=== PATIENT | male | born 1970 ===

== ENCOUNTER 2023-07-25 10:09 | Outpatient (AMB) | payer OTHER, SELFPAY ==
--- NOTE | 2023-07-25 10:35 | A.SPINEOV_ITS ---
Intake Intake Visit Reasons: Lumbar spinal stenosis Intake Note: Mr. Brown is here today c/o back pain radiating to both legs. Print Shop Assistant Required: Yes Print Shop Assistant Name: Tablet Allergies No Known Allergies Allergy (Verified 07/25/23 10:38) Assessment & Plan Assessment & Plan (1) Back pain: Code(s): M54.9 - Dorsalgia, unspecified Plan Dear Bladimir, Thank you for referring Mr Brown to our office today. This is a very nice 53-year-old gentleman who presents to the office today for a multiyear history of low back pain. He tells me that he has pain basically from the moment he gets up in the morning until he goes to bed. Getting up in the morning can be very difficult. Getting out of the bed is difficult, but as the day goes on the pain only seems to get worse. He underwent physical therapy as well as acupuncture and cortisone injections through the years. These things never seemed to really do much for him. Takes ibuprofen throughout the day. 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 This also makes his back pain significantly worse. He will also get pain that radiates down his legs into his feet with some numbness on his toes as well. He comes today to see us with an MRI done at [facility] showing epidural lipomatosis at L3-4 and L4-5 and severe degenerative disc disease at L5-S1. PMH: The patient is otherwise healthy, he is however morbidly obese, history of obstructive sleep apnea, diverticulosis, inguinal hernia bilaterally, diverticulitis, high cholesterol, hypothyroidism, vitamin-D deficiency, cholecystectomy. Denies any heart attacks, strokes, diabetes, kidney problems, liver problems, bleeding disorders, blood clots or previous back surgeries. Social hx: He does not smoke, occasional alcohol and does not use any recr eational drugs Medications: Ibuprofen as needed Allergies: None Physical exam: Morbidly obese no acute distress, he has full strength of bilateral lower extremities with normal reflexes Imaging review: He has a lumbar MRI done at [facility] showing severe disc collapse at L5-S1. He also has epidural lipomatosis at L3-4 and L4-5. There is significant narrowing of the thecal sac at this level L4-5. Impression: 53-year-old male presents to the office today for evaluation of what is primarily chronic low back pain but also has intermittent radiculopathy in his legs going down to his calves and feet. From the standpoint of his back pain, I think the symptoms are likely coming from the L5-S1 degenerative disc disease. It is a significantly collapsed disc. The foramina remain patent however. So I think is radiculopathy symptoms could be coming from the epidural lipomatosis, however we know that treating this surgically often results in the fatty tissue just growing back over time if the patient does not commit to weight loss, so weight loss is generally a better approved option to start. However, I do not think that weight loss will have any effect on his back pain as the disc is quite collapsed at L5-S1. I explained all this to him with the help of an second floor operator. I think he would be a good candidate for an L5-S1 fusion. I will review his imaging with Dr. Emerson for final decision on surgery, and whether this is an anterior lumbar interbody fusion versus a trans Kambin approach. The patient and I did briefly discuss risks, benefits of both approaches as well as his recovery. He Understands he would need 3 we months off from work because of the nature of his job. I will call the patient once I have a final plan in place with Dr. Emerson. Thank you for allowing us to care for your patient. The total time spent with this visit with this patient was 45 minutes reviewing history, physical exam, lumbar imaging review, and implementation of treatment plan or further diagnostic testing Gary Emerson MD,PhD [facility] Coding Level of Care Code New Pt Level 4 (34337) Diagnoses Back pain M54.9
== END 2023-07-25 11:11 | disposition home or self-care (01) ==
PROVIDERS: PCP Internal Medicine; Referring Provider Physician Assistant; Visit Provider Physician Assistant
DX: M54.9 Dorsalgia, unspecified (principal)
CPT/HCPCS: 99204

== ENCOUNTER → 2023-07-25 10:09 | Outpatient (BNVA) | payer OTHER, SELFPAY | PROVIDERS: PCP Internal Medicine; Visit Provider Physician Assistant | DX: M54.9 Dorsalgia, unspecified (principal) | CPT/HCPCS: 99202 ==

== ENCOUNTER 2023-08-11 15:22 | Outpatient (AMB) | payer OTHER, SELFPAY ==
--- NOTE | 2023-08-11 15:23 | A.SPINEOV_ITS ---
Intake Visit Reasons: Discuss Surgery Intake Note: Mr. Velasco is here to Discuss surgery Memory Care Director Required: Yes Memory Care Director Name: Tablet Accompanied by: Spouse Allergies No Known Allergies Allergy (Verified 08/11/23 15:24) Assessment & Plan Assessment & Plan (1) Back pain: Code(s): M54.9 - Dorsalgia, unspecified Category: Medical Plan MR Brown came into the office today to go over his imaging again and to discuss surgery. Dr. Emerson and I reviewed his films and thought a trans Kambin oblique lateral lumbar interbody fusion at L5-S1 would be the approach of choice for him. I sat down with him and his and reviewed the imaging at length, discussed risks benefits of surgery etc.. We again discussed the fact that the degenerative disc in his back is likely much of the source of his back pain but may not explain at all given that he does have obesity. I quoted success rate for surgery at 60-70% for his back pain. We also discussed the fact that he has epidural lipomatosis at L4-5 and that could be giving him some of his nerve pain down his legs but that the focus would be weight loss to treat that as opposed to surgery which can be very unpredictable. 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 We would be happy to fill out any FMLA forms that he needs us to. He would like to proceed with surgery, so I booked him for October. He will come back the week before surgery to meet Dr. Emerson. Pt was given risk and benefits of surgery including but not limited to infection, hematoma , nerve injury,durotomy, weakness,bowel/bladder injury, persistent pain, transient nerve pain down the leg as well as the option to continue with conservative treatment and patient wishes to proceed with surgery. Pt is aware they should stop their motrin, aspirin 7 days prior to surgery. All questions were answered to the best of our ability. If there is anything about this patients medical history that we have overlooked or concerns you have about us proceeding with surgery we would appreciate any input you can offer. Total amount of time spent in this visit was 20 minutes in discussion of symptoms, lumbar MRI done at [facility] imaging results and subsequent plan of care Gary Emerson MD,PhD [facility] Coding Level of Care Code Est Pt Level 3 (43550) Diagnoses Back pain M54.9
== END 2023-08-11 15:54 | disposition home or self-care (01) ==
PROVIDERS: PCP Internal Medicine; Visit Provider Physician Assistant
DX: M54.9 Dorsalgia, unspecified (principal)
CPT/HCPCS: 99213

== ENCOUNTER → 2023-08-11 15:22 | Outpatient (BNVA) | payer OTHER, SELFPAY | PROVIDERS: PCP Internal Medicine; Visit Provider Physician Assistant | DX: M54.9 Dorsalgia, unspecified (principal) | CPT/HCPCS: 99212 ==

== ENCOUNTER 2023-10-18 | Outpatient (REF) | payer OTHER, SELFPAY ==
[2023-10-18 10:13] VITALS: BP 145/88; PULSE 78; RESP 18; O2SAT 95; BMI 37.8
--- NOTE | 2023-10-18 10:40 | ECG_ITS ---
Test Reason : pre op Blood Pressure : / mmHG Vent. Rate : 066 BPM Atrial Rate : 066 BPM P-R Int : 160 ms QRS Dur : 088 ms QT Int : 382 ms P-R-T Axes : 047 011 025 degrees QTc Int : 400 ms Normal sinus rhythm Normal ECG No previous ECGs available Referred By: Libby Starks Electronically Signed By:ZACH RAMIREZ
[2023-10-18 11:03] LABS: MANUAL DIFF FLAG NO
[2023-10-18 11:09] LABS: Basophils Percent Auto 0.8 % (0-2); Eosinophils Absolute Auto 0.1 X10*3/uL (0.0-0.4); Hematocrit 48.5 % (42.0-52.0); Hemoglobin 16.5 g/dl (14.0-18.0); Imm Gran Abs Auto 0.01 X10*3/uL (0.00-0.03); Imm Gran Pct Auto 0.2 % (0.0-0.4); Lymphocytes Absolute Auto 1.4 X10*3/uL (1.2-4.9); Lymphocytes Percent Auto 27.8 % (20-40); Mean Corpuscular Hemoglobin 32.5 pg (27.0-33.0); Mean Corpuscular Volume 95.7 fL (80.0-98.0); Mean Platelet Volume 8.6 fL (9.4-12.4); Monocytes Absolute Auto 0.4 X10*3/uL (0.1-1.2); Monocytes Percent Auto 7.2 % (2-11); Neutrophils Absolute Auto 3.1 x10*3/uL (2.0-8.3); Platelet Count 259 X10*3/uL (160-400); Red Blood Count 5.07 X10*6/uL (4.60-5.80)
[2023-10-18 11:34] LABS: Anion Gap 10 (12-20); Blood Urea Nitrogen 14 mg/dL (9-16); Calcium 10.1 mg/dL (8.4-10.2); Carbon Dioxide 27 mmol/L (22-29); Chloride 105 mmol/L (96-108); Creatinine Clr Calc Pharmacy 97.1; Estimated Glomerular Filt Rate > 60; Glucose Random 96 mg/dL (60-115); Potassium 4.3 mmol/L (3.3-5.1); Sodium 138 mmol/L (135-145)
--- NOTE | 2023-10-30 09:04 | HO.ANESPROP2 ---
HPI - Anesthesia Eval Consult details Narrative: 53yo M for L5-S1 Transkambin Lumbar Interbody Fusion 10/18/[address] Tereza LOU Active Problems Active Problems: All Active Problems Back pain (Acute) Past Medical History Medical History (Updated 10/18/23 @ 10:10 by Landy Maharaj, RN) Peptic ulcer Thyroid disease Hyperlipidemia Lumbar radiculitis Inguinal hernia bilateral, non-recurrent Change in bowel habits Abdominal pain Straining with stools Diverticulosis Habitual snoring Vitamin D deficiency Sleep apnea Surgical History Surgical History (Updated 10/18/23 @ 10:10 by Landy Maharaj, RN) History of esophagogastroduodenoscopy (EGD) Hx of cholecystectomy H/O colonoscopy Social History Social History Are you a primary respiratory care program director to a significant other at home: No Do you presently have visiting nurse or other home services: No Patient Tobacco Use Status: Former Tobacco user Use of substances other than those prescribed or required for medical reasons: No Have you been hit, kicked, punched, or otherwise hurt by someone within the past year? If so, by whom?: No Advance Directives: No Advance Directives Information Provided: No Advance Directives on File: No Recently lost weight without trying: No Eating poorly because of decreased appetite: No Nutrition Risks: No Nutritional Risk Poor oral hygiene: Yes (removable upper bridge) Meds Allergies Allergy/AdvReac Type Severity Reaction Status Date / Time No Known Allergies Allergy Verified 08/11/23 15:24 Home Medications ?Medication ?Instructions ?Recorded ?Confirmed ?Last Taken ?Type ibuprofen 800 mg tablet 800 mg PO Q8H PRN Pain 10/17/23 10/17/23 Unknown History Exam Height,Weight and Vital Signs: Height 5 ft 9 in Weight 116.12 kg Last Vital Signs Pulse 78 10/18/23 10:13 Resp 18 10/18/23 10:13 BP 145/88 H 10/18/23 10:13 Pulse Ox 95 10/18/23 10:13 O2 Del Method Room Air 10/18/23 10:13 Pertinent Lab Results Pertinent Lab Results: Laboratory Tests 10/18/23 10/18/23 10:55 11:02 WBC 5.0 RBC 5.07 Hgb 16.5 Hct 48.5 MCV 95.7 MCH 32.5 MCHC 34.0 RDW 13.0 Plt Count 259 MPV 8.6 L Immature Gran % (Auto) 0.2 Neut % (Auto) 62.0 Lymph % (Auto) 27.8 [place] % (Auto) 7.2 Eos % (Auto) 2.0 Baso % (Auto) 0.8 Lymph # (Auto) 1.4 [place] # (Auto) 0.4 Eos # (Auto) 0.1 Baso # (Auto) 0.0 Abs Immat Gran (auto) 0.01 Absolute Neuts (auto) 3.1 Absolute Nucleated RBC 0.000 Nucleated RBC % (auto) 0.0 Sodium 138 Potassium 4.3 Chloride 105 Carbon Dioxide 27 Anion Gap 10 L BUN 14 Creatinine 1.08 Estim Creat Clear Calc 97.1 Estimated GFR > 60 Random Glucose 96 Calcium 10.1 Blood Type O Positive Antibody Screen NEGATIVE Narrative Narrative: EKG 10/18/23 Vent. Rate : 066 BPM Atrial Rate : 066 BPM P-R Int : 160 ms QRS Dur : 088 ms QT Int : 382 ms P-R-T Axes : 047 011 025 degrees QTc Int : 400 ms Normal sinus rhythm Normal ECG No previous ECGs available Assessment and Plan Assessment Anesthesia Assessment: Chart Reviewed
== END 2023-10-18 00:01 | disposition home or self-care (01) ==
LOC: HO.PAT
PROVIDERS: Anesthesiology; PCP Internal Medicine; Visit Provider Neurological Surgery
DX: Z01.818 Encounter for other preprocedural examination (principal); M54.9 Dorsalgia, unspecified
CPT/HCPCS: 36415; 80048; 85025; 86850; 86900; 86901; 93005

== ENCOUNTER → 2023-10-18 10:40 | Outpatient (BNV) | payer OTHER, SELFPAY | PROVIDERS: Admitting Provider Neurological Surgery; PCP Internal Medicine; Visit Provider Internal Medicine | DX: Z01.810 Encounter for preprocedural cardiovascular examination (principal) | CPT/HCPCS: 93010 ==

== ENCOUNTER 2023-12-08 13:38 | Outpatient (AMB) | payer OTHER, SELFPAY ==
--- NOTE | 2023-12-08 13:56 | A.SPINEOV_ITS ---
Intake Visit Reasons: Increasing pain. Intake Note: Mr. Brown is here today c/o increasing pain. Invoice Machine Operator Required: Yes Invoice Machine Operator Name: Tablet Allergies No Known Allergies Allergy (Verified 08/11/23 15:24) Assessment & Plan Assessment & Plan (1) Back pain: Code(s): M54.9 - Dorsalgia, unspecified Category: Medical Plan Mr Brown surgery was declined because of lack of physical exam findings suggesting nerve root compression. I brought him back in today to re-examine him and go over things with a bit more detail. I had him remove his shoes, we did a full sensory exam of his left foot and there is a loss of light touch to the outer upper part of his left foot and the 3 most lateral toes on the left foot. He also has positive straight leg raise at about 25 degrees. He has absent reflexes at the Achilles as well. This should be enough to document pertinent nerve root findings consistent with a compression we see on his imaging to get surgery approved. We will resubmit for his L5-S1 trans Kambin fusion. Total amount of time spent in this visit was 20 minutes in discussion of symptoms, lumbar imaging results and subsequent plan of care Gary Emerson MD,PhD [facility] Coding Level of Care Code Est Pt Level 3 (67121) Diagnoses Back pain M54.9
== END 2023-12-08 14:25 | disposition home or self-care (01) ==
PROVIDERS: PCP Internal Medicine; Visit Provider Physician Assistant
DX: M54.9 Dorsalgia, unspecified (principal)
CPT/HCPCS: 99213

== ENCOUNTER → 2023-12-08 13:38 | Outpatient (BNVA) | payer OTHER, SELFPAY | PROVIDERS: PCP Internal Medicine; Visit Provider Physician Assistant | DX: M54.9 Dorsalgia, unspecified (principal) | CPT/HCPCS: 99212 ==

== ENCOUNTER 2024-03-05 06:08 | Day surgery (SDC) | payer OTHER, SELFPAY ==
[2024-02-20 10:31] VITALS: BMI 38.8
[2024-02-20 10:41] VITALS: BP 151/87; PULSE 84; RESP 18; O2SAT 95
--- NOTE | 2024-02-20 10:46 | P.CONAN_ITS ---
Documented by User: Di Davis NP 03/01/24 14:07 HPI - Anesthesia Eval Consult details Narrative: 53yo M for L4-5 Transkambin Lumbar Interbody Fusion, 03/05/[address] [facility] 10/[address] Starks. Surgery resched d/t insurance requirements No recent illness MCLEOD with recent eval by pulmonary. No CP with yard work KEM: CPAP most nights - encouraged nightly use preop PMFSH Active Problems Active Problems: All Active Problems Back pain (Acute) Past Medical History Medical History Numbness SOB (shortness of breath) Murmur Peptic ulcer Thyroid disease Hyperlipidemia Lumbar radiculitis Inguinal hernia bilateral, non-recurrent Change in bowel habits Abdominal pain Straining with stools Diverticulosis Habitual snoring Vitamin D deficiency Sleep apnea Surgical History Surgical History History of esophagogastroduodenoscopy (EGD) Hx of cholecystectomy H/O colonoscopy Social History Social History Are you a primary acute care clinical nurse specialist to a significant other at home: No Do you presently have visiting nurse or other home services: No Patient Tobacco Use Status: Former Tobacco user Use of substances other than those prescribed or required for medical reasons: No Have you been hit, kicked, punched, or otherwise hurt by someone within the past year? If so, by whom?: No Are you DNR?: No Advance Directives: No Advance Directives Information Provided: No Advance Directives on File: No Recently lost weight without trying: No Eating poorly because of decreased appetite: No Nutrition Risks: No Nutritional Risk Poor oral hygiene: Yes (upper bridge) Meds Allergies Allergy/AdvReac Type Severity Reaction Status Date / Time No Known Allergies Allergy Verified 08/11/23 15:24 Home Medications ?Medication ?Instructions ?Recorded ?Confirmed ?Last Taken ?Type ibuprofen 800 mg tablet 800 mg PO Q8H PRN Pain 10/17/23 02/20/24 Unknown History Exam Height,Weight and Vital Signs: Height 5 ft 9 in Weight 119.068 kg Last Vital Signs Pulse 84 02/20/24 10:41 Resp 18 02/20/24 10:41 BP 151/87 H 02/20/24 10:41 Pulse Ox 95 02/20/24 10:41 O2 Del Method Room Air 02/20/24 10:41 Pertinent Lab Results Pertinent Lab Results: Laboratory Tests 10/18/23 11:02 WBC 5.0 Hgb 16.5 Hct 48.5 Plt Count 259 Sodium 138 Potassium 4.3 Chloride 105 Carbon Dioxide 27 BUN 14 Creatinine 1.08 Lab Results 02/20/24 Range/Units 11:20 Blood Type O Positive Antibody Screen NEGATIVE Narrative Narrative: EKG 10/2023 Vent. Rate : 066 BPM Atrial Rate : 066 BPM P-R Int : 160 ms QRS Dur : 088 ms QT Int : 382 ms P-R-T Axes : 047 011 025 degrees QTc Int : 400 ms Normal sinus rhythm Normal ECG No previous ECGs available Airway Mallampati Class: II TM Dist: >3cm (short neck) Neck ROM: Full Partial: Upper Heart: RRR Lungs: CTAB Assessment and Plan Assessment Anesthesia Assessment: Anesthesia Plan Discussed and PAT Visit Documented by User: Marlon Casper MD 03/05/24 10:22 [facility] Past Medical History Medical History Numbness SOB (shortness of breath) Murmur Peptic ulcer Thyroid disease Hyperlipidemia Lumbar radiculitis Inguinal hernia bilateral, non-recurrent Change in bowel habits Abdominal pain Straining with stools Diverticulosis Habitual snoring Vitamin D deficiency Sleep apnea Family History Family history of problems with anesthesia: No Surgical History Surgical History History of esophagogastroduodenoscopy (EGD) Hx of cholecystectomy H/O colonoscopy History of Problems with Anesthesia: No Social History Social History Are you a primary acute care clinical nurse specialist to a significant other at home: No Do you presently have visiting nurse or other home services: No Patient Tobacco Use Status: Former Tobacco user Use of substances other than those prescribed or required for medical reasons: No Have you been hit, kicked, punched, or otherwise hurt by someone within the past year? If so, by whom?: No Are you DNR?: No Advance Directives: No Advance Directives Information Provided: No Advance Directives on File: No Recently lost weight without trying: No Eating poorly because of decreased appetite: No Nutrition Risks: No Nutritional Risk Poor oral hygiene: Yes (upper bridge) Meds Allergies Allergy/AdvReac Type Severity Reaction Status Date / Time No Known Allergies Allergy Verified 08/11/23 15:24 Home Medications ?Medication ?Instructions ?Recorded ?Confirmed ?Last Taken ?Type ibuprofen 800 mg tablet 800 mg PO Q8H PRN Pain 10/17/23 02/20/24 Unknown History Assessment and Plan Final Anesthetic Review Family History of Problems with Anesthesia: No History of Problems with Anesthesia: No NPO: Yes ASA Class: III Final Preanesthetic Review: No Changes in Pt Med Stat, Meds/Allgs Chart Reviewed, Consent Obtained/Reviewed and Anes Risks/Benef Reviewed Patient Risk: Intermediate Procedure Risk: Low Anesthetic Plan Anesthetic Plan: GA Disposition: Standard PACU
[2024-03-05] VITALS (7 sets, daily range): BP systolic 104–139; BP diastolic 52–86; PULSE 67–86; RESP 14–19; TEMP 36.1–36.7; O2SAT 94–98
--- NOTE | ~2024-03-05 | FL_ITS ---
EXAMINATION: FLUORO GUIDANCE IN OR CLINICAL INFORMATION: L5-S1 Trans-Kambin lumbar interbody fusion. COMPARISON: None available. TECHNIQUE: Fluoroscopy supervised by: Dr. Rico Emerson. Fluoroscopy time: 77.6 seconds. Cumulative Dose: 58.418 mGy. DAP: 16.664 Gy-cm2 (murphy-centimeter squared). Images: 3. FINDINGS: A large surgical cannula is seen at the L5-S1 disc space. FL/FL guidance in OR IMPRESSION: Fluoroscopy during procedure. Please see procedure report for additional information. Electronically signed by: Abdoul Shetty MD 05/15/2024 01:23 PM [facility]
[2024-03-05] MEDS: Gabapentin 300 MG CAPSULE PO (06:30)
[2024-03-05] MEDS: methocarbamoL 750 MG TABLET PO (06:30)
[2024-03-05] MEDS: Lactated Ringers 1,000 ML 100 ML IVCONT (06:36)
--- NOTE | 2024-03-05 07:08 | MHC.SHP ---
Pre-Procedural Eval Section A - 24 Hr Update-Section A only Date of Service: 03/05/24 The patient is an INPATIENT: No Changes since office visit: No Cold of Flu in the past 2 weeks, No New Medical Problems, No Changes in Medication and No Patient answered all questions The patient has been examined within 24 hours of the surgical procedure. The History & Physical has been completed within 30 days and I have reviewed it.: No Section B - Complete if H&P > 30 days Chief Complaint: s/p L5-S1 Transkambin lumbar fusion Allergies: Allergies Allergy/AdvReac Type Severity Reaction Status Date / Time No Known Allergies Allergy Verified 08/11/23 15:24 Review of Systems Sugical H&P ROS: Negative: Constitution, Cardiovascular, Respiratory, Neurological, Psychiatric, Hem-Onc, Allergic/Immunologic, Gastrointestinal, Genitourinary, Musculoskeletal, Integumentary, Endocrine and Eyes/Ears/Nose/Throat Exam Surgical H&P Exam: Normal: HEENT, Normal: Heart, Normal: Lungs, Normal: Extremities, Normal: Abdomen, Normal: Skin and Normal: Neurological (awake, alert,oriented x 3 ) Plan Diagnosis/Plan: Unchanged L5-S1 transkambin lumbar interbody fusion Time Spent With Patient Time: Total time managing care of this patient today _6___ minutes.
--- NOTE | 2024-03-05 08:55 | PM.DS ---
DS: Providers Provider Date of Service: 03/05/24 Date of admission: 03/05/24 06:08 Date of discharge: 03/05/24 Primary care physician: Mirza Hamlin MD Admitting clinician: Rico Emerson DS: Diagnosis Discharge Diagnosis (1) Back pain: Status: Acute DS: Summary Time Attestation Discharge Coordination Time (in mins): 4 Quality: Safe Use of Opioids Does Pt have an Active Cancer Diagnosis on the Problem List?: No Quality: Stroke Does the patient have a stroke diagnosis?: No Physical Exam Vital Signs: Vital Signs: Last Vital Signs Temp 98.0 F 03/05/24 06:37 Pulse 73 03/05/24 06:37 Resp 16 03/05/24 06:37 BP 139/86 03/05/24 06:37 Pulse Ox 98 03/05/24 06:37 O2 Del Method Room Air 03/05/24 06:37 BMI result Body Mass Index 38.8 Discharge Plan Discharge Anticipated Discharge Date/Time: 03/05/24 10:06 Patient Disposition: Home, Self-Care Discharge Diagnosis: back pain Referrals: Mirza Carlton MD [Primary Care Provider] - 1 Week Discharge Medications: New docusate sodium [Colace] 100 mg capsule 100 mg PO BID Qty: 20 0RF oxycodone 5 mg tablet 5 mg PO Q4H PRN (Reason: pain) Qty: 30 0RF Rx Instructions: Partial Fill upon patient request. Continued ibuprofen 800 mg Tablet 800 mg PO Q8H PRN (Reason: Pain) Discharge Orders: Discharge Order (Routine); Ordered 03/05/24 Ordered By: Gary Tolbert Diet: Advance to usual diet Activity on Discharge: As tolerated Stand Alone Forms: Patient Portal Discharge page Print Language: Upper Sorbian Activity Restrictions/Additional Instructions: We were unable to do surgery because upon trying to get into your L5-S1 disk space, it was found that bone had grown over the disk area fusing it together. This made us unable to get our instruments into the correct position needed. Also, the goal of the surgery was a fusion but your body had already fused the L5-S1 area. Care Plan Goals: discharge home Health Concerns: none Plan of Treatment: discharge home Assessment: stable
--- NOTE | 2024-03-05 09:27 | W.PM.OPN ---
Operative Note Operative Note Date of Service: 03/05/24 Narrative: Preoperative diagnosis: 1) lumbar degenerative disc disease 2) back pain Postprocedure diagnosis: 1) lumbar degenerative disc disease 2) auto fusion L5-S1 Procedure: 1) L5-S1 oblique lateral lumbar interbody fusion with discectomy with intraoperative biplanar fluoroscopy imaging and electrophysiological monitoring Consent Informed Consent was obtained for this operation. I have explained the nature, purpose and benefits of the operation. I have discussed the risks and benefit of the operation including possible complications or adverse events with patient/family. Alternative(s) were discussed with the patient with their relative benefits and risks as well as the consequences of not accepting the operation were included in obtaining consent. Surgeon: SINDHU LOMBARDO MD, PHD Procedure Assisted By: zabrina Grier Description of Procedure: This is a complex surgery on the lumbar spine and an educational assistant teacher as needed for safety of the surgery for setup of instrumentation, retraction and closing. History: This patient is suffering from intractable low back pain. MRI shows lumbar degenerative disc disease L5-S1. The patient was offered an oblique lumbar lateral interbody fusion followed by a posterior lateral instrumented fusion L5-S1. The procedure and complications were explained and the patient was consented. Procedure: The patient was brought to the operating room and endotracheally intubated. The patient was positioned on the [place] spine table in a modified prone position for ease of access from the left side.. 2C arms were installed for fluoroscopy. Prepping and draping was done followed by timeout. The landmarks, including spinal processes, transverse processes, disc space, endplates and pedicles are identified and marked. The patient was turned using the rotation of the surgical table so a near direct anterior lateral approach to the lumbar spine could be achieved. A small incision was then made superior to the mid iliac crest and then using biplanar fluoroscopy visualization, under electrophysiological monitoring and stimulation, we introduced an electrophysiological probe through the retroperitoneal space into the desired disc anterior to the transverse process and then passed it into the disc space after finding a silent window. The sleeve was retained and the probe was removed, then the K wire was passed but was not passing into the disc space. Imaging showed now a large lateral osteophyte which appeared to be fused. A dilating tube was then passed along the same route. The dilating tube was advanced into the disc space but no increase in disc height was seen. In other words the disc space was auto fused. I unsuccessfully tried to advance discectomy instruments into the disc space. It made no sense to proceed with the procedure as an fusion had already taken place. Therefore the dilating tube was removed and the incision was closed in 2 layers. The patient was extubated and transported in a stable condition to the recovery room. This procedure was done with the aid of a physician educational assistant teacher as a qualified resident was not available. Anesthesia: General Estimated Blood Loss (ml): Minimal Specimen: None Duration of Surgery: 20 minutes Postoperative Plan: Discharge
[2024-03-05] MEDS: Ketorolac Tromethamine 30 MG/ML VIAL IVPUSH (09:36)
== END 2024-03-05 11:57 | disposition home or self-care (01) ==
LOC: HO.SSSA 10:06 → HO.SSS 11:52
PROVIDERS: PCP Internal Medicine; Visit Provider Neurological Surgery
PROC: (CPT 22558; principal; 2024-03-05 07:30)
DX: M51.360 Other intervertebral disc degeneration, lumbar region with discogenic back pain only (principal); Z53.8 Procedure and treatment not carried out for other reasons; E78.5 Hyperlipidemia, unspecified; R06.02 Shortness of breath; E55.9 Vitamin D deficiency, unspecified; E07.9 Disorder of thyroid, unspecified; G47.33 Obstructive sleep apnea (adult) (pediatric); Z99.89 Dependence on other enabling machines and devices; Z79.1 Long term (current) use of non-steroidal anti-inflammatories (NSAID); Z90.49 Acquired absence of other specified parts of digestive tract; Z87.891 Personal history of nicotine dependence
CPT/HCPCS: 22558; 86850; 86900; 86901; C9290; J0131; J0665; J0690; J1885; J2003; J2704; J3010

== ENCOUNTER → 2024-03-05 06:08 | Outpatient (BNV) | payer OTHER, SELFPAY | PROVIDERS: Admitting Provider Physician Assistant; PCP Internal Medicine; Visit Provider Physician Assistant | DX: M51.360 Other intervertebral disc degeneration, lumbar region with discogenic back pain only (principal) | CPT/HCPCS: 22558; 99499 ==

== ENCOUNTER 2024-03-08 14:18 | Outpatient (AMB) | payer OTHER, SELFPAY ==
--- NOTE | 2024-03-08 15:05 | A.SPINEOV_ITS ---
Intake Visit Reasons: surgical discussion Intake Note: Mr. Brown is here today to discuss surgery. Registered Safety Engineer Required: Yes Registered Safety Engineer Name: Tablet Allergies No Known Allergies Allergy (Verified 08/11/23 15:24) Assessment & Plan Assessment & Plan (1) Back pain: Code(s): M54.9 - Dorsalgia, unspecified Category: Medical Plan Registered Safety Engineer [id number] used for this visit. Mr. Brown came back to the office, we attempted to do a trans Kambin L5-S1 on him a few days ago but unfortunately his disc space in the surrounding area did not allow us access into Kambin triangle in order to properly perform the fusion. We discharged him home same day and he comes back in today just to review things again because he was under anesthesia or just coming out of anesthesia when we spoke with him last time. We also spoke to his right after surgery. I explained everything to him today. He understands that we did not want to go any further in attempt to cause a problem with the nerve or have to break the bones to try to get the cage in. We did not want to give him more pain than he already had. Therefore, Dr. Emerson wanted to get a noncontrast CT of the lumbar spine to better evaluate to see if there was another way to get into the disc space and to check to see if there was indeed a complete fusion of it. I will order that he will come back to see us. I gave him a return to work note with no lifting greater than 25 lb. Gary Emerson MD,PhD [facility] Orders: Orders CT lumbar spine wo IV con Today M54.9 - Dorsalgia, unspecified Coding Level of Care Code Global (92230) Diagnoses Back pain M54.9
== END 2024-03-08 15:42 | disposition home or self-care (01) ==
PROVIDERS: PCP Internal Medicine; Visit Provider Physician Assistant
DX: M54.9 Dorsalgia, unspecified (principal)
CPT/HCPCS: 99024

== ENCOUNTER → 2024-03-08 14:18 | Outpatient (BNVA) | payer OTHER, SELFPAY | PROVIDERS: PCP Internal Medicine; Visit Provider Physician Assistant | DX: M54.9 Dorsalgia, unspecified (principal) | CPT/HCPCS: 99212 ==

== ENCOUNTER 2024-03-29 13:34 | Outpatient (REF) | payer OTHER, SELFPAY ==
--- OUTSIDE RECORDS SUMMARY | 2024-03-29 13:40 | XMS_ITS ---
Author Name [facility] Organization Unknown History of Medication Use Medication Directions Dispensed Refills Start Date End Date Stat diclofenac (VOLTAREN) 1 % gel Apply 4 g topically. 11/26/2022 active methocarbamol (ROBAXIN) 500 MG tablet Take 500 mg by mouth. 11/26/2022 active amoxicillin-clavulanat e (AUGMENTIN) 875-125 MG per tablet Take 1 tablet by mouth 2 (two) times a day. For 7 days 11/26/2022 active diazepam (VALIUM) 5 MG tablet Take 1 tab one hr prior to procedure. May repeat in 30 minutes if needed. 11/26/2022 active docusate sodium (COLACE) 100 MG capsule Take 1 capsule by mouth 2 (two) times a day. 11/26/2022 active polyethylene glycol (miraLAx) 17 GM/SCOOP powder Take 17 g by mouth. 11/26/2022 active psyllium (METAMUCIL) 58.6 % packet Take 1 packet by mouth. 11/26/2022 active naproxen (NAPROSYN) 500 MG tablet Take 500 mg by mouth. 11/26/2022 active ondansetron (ZOFRAN) 4 MG tablet Take 4 mg by mouth 3 times daily (every 8 hours) as needed. for nausea 11/26/2022 active Problems Problem Status Onset Date Problem Type Date of Resoluti on Source Displacement of lumbar intervertebral disc without myelopathy active 2019-12-10 ProblemAct CCT DDD (degenerative disc disease), lumbar active 2019-12-10 ProblemAct [facility]
== END 2024-03-29 13:35 | disposition home or self-care (01) ==
LOC: HO.CT 13:34
PROVIDERS: PCP Internal Medicine; Visit Provider Physician Assistant
DX: M54.9 Dorsalgia, unspecified (principal)
CPT/HCPCS: 72131

== ENCOUNTER 2024-04-04 14:06 | Outpatient (AMB) | payer OTHER, SELFPAY ==
--- NOTE | 2024-04-04 14:58 | A.SPINEOV_ITS ---
Vital Signs 04/04/24 15:09 Height 5 ft 9 in Weight 255 lb BMI 37.7 Intake Visit Reasons: CT follow up Intake Note: Mr. Brown is here today to F/u on the results of his CT. Foreign Car Mechanic Required: Yes Foreign Car Mechanic Name: Tablet Allergies No Known Allergies Allergy (Verified 04/04/24 14:58) Physical Exam Vital Signs: BMI result Body Mass Index 37.7 Assessment & Plan Assessment & Plan (1) Back pain: Code(s): M54.9 - Dorsalgia, unspecified Category: Medical Plan Foreign Car Mechanic [id number] was used for this visit. Mr. Brown came back to the office today to review his CT scan. Dr. Emerson looked at it and unfortunately the disc is already fused together. Therefore, we do not have any surgery to offer him. I explained this to him and his using to help with the service shop foreman. Unfortunately there is nothing more we can do for him. He could consider other things like injections and continuing with the physical therapy etc. but there is no surgical option for him unfortunately. He did have some postoperative tingling and numbness down his left leg and I told him that is probably due to the approach for the surgery and should go away with time. Gary Emerson MD, PhD [facility] Coding Level of Care Code Global (15403) Diagnoses Back pain M54.9
[2024-04-04 15:09] VITALS: BMI 37.7
== END 2024-04-04 15:33 | disposition home or self-care (01) ==
PROVIDERS: PCP Internal Medicine; Visit Provider Physician Assistant
DX: M54.9 Dorsalgia, unspecified (principal)
CPT/HCPCS: 99024

== ENCOUNTER → 2024-04-04 14:06 | Outpatient (BNVA) | payer OTHER, SELFPAY | PROVIDERS: PCP Internal Medicine; Visit Provider Physician Assistant | DX: M54.9 Dorsalgia, unspecified (principal) | CPT/HCPCS: 99212 ==

== ENCOUNTER 2025-04-04 13:37 | Outpatient (REF) | payer OTHER, SELFPAY ==
--- NOTE | 2025-04-04 13:42 | EMG_ITS ---
Chief complaint: Bilateral hand numbness Reason for referral: Evaluate for Carpal Tunnel Syndrome or ulnar neuropathy Referred by: Mayda DIAZ Procedure done: Bilateral upper extremities NCS/EMG Precautions and/or limitations: None Swiss speaking, seen with product trainer. The limb temperature was monitored continuously and remained between 32-36 degrees C during the performance of the NCS. Nerve Conduction Studies Anti Sensory Summary Table ?Stim Site NR Onset (ms) Norm Onset (ms) Peak (ms) Norm Peak (ms) O-P Amp (?V) Norm O-P Amp Site1 Site2 Delta-0 (ms) Dist (cm) Joey (m/s) Norm Joey (m/s) Left Median Anti Sensory (2nd Digit) Wrist ? 2.7 3.2 <3.6 23.4 >10 Wrist 2nd Digit 2.7 14.0 52 Right Median Anti Sensory (2nd Digit) Wrist ? 2.8 3.3 <3.6 20.3 >10 Wrist 2nd Digit 2.8 14.0 50 Left Radial Anti Sensory (Thumb) Forearm ? 1.7 2.3 <3.1 19.2 Forearm Thumb 1.7 0.0 Left Ulnar Anti Sensory (5th Digit) Wrist ? 2.3 3.1 <3.7 16.9 >15.0 Wrist 5th Digit 2.3 14.0 61 Right Ulnar Anti Sensory (5th Digit) Wrist ? 0.6 3.3 <3.7 44.3 >15.0 Wrist 5th Digit 0.6 14.0 233 Motor Summary Table ?Stim Site NR Onset (ms) Norm Onset (ms) O-P Amp (mV) Norm O-P Amp iAmp (mV) Amp (1st) (%) Site1 Site2 Delta-0 (ms) Dist (cm) Joey (m/s) Norm Joey (m/s) Left Median Motor (Abd Poll Brev) Wrist ? 3.9 <3.9 5.5 >4.5 6.5 100.0 Elbow Wrist 4.1 21.0 51 >45 Elbow ? 8.0 4.5 5.6 81.8 Right Median Motor (Abd Poll Brev) Wrist ? 4.8 <3.9 4.2 >4.5 5.4 100.0 Elbow Wrist 4.3 21.0 49 >45 Elbow ? 9.1 3.8 4.9 90.5 Left Ulnar Motor (Abd Dig Minimi) Wrist ? 2.7 <3.0 8.0 >5 9.6 100.0 B Elbow Wrist 3.6 20.0 56 >45 B Elbow ? 6.3 6.8 8.3 85.0 A Elbow B Elbow 1.7 10.0 59 >45 A Elbow ? 8.0 6.5 8.0 81.3 Right Ulnar Motor (Abd Dig Minimi) Wrist ? 2.7 <3.0 8.6 >5 10.2 100.0 B Elbow Wrist 3.7 21.0 57 >45 B Elbow ? 6.4 8.0 9.6 93.0 A Elbow B Elbow 1.3 10.0 77 >45 A Elbow ? 7.7 7.7 9.4 89.5 Comparison Summary Table ?Stim Site NR Peak (ms) Norm Peak (ms) P-T Amp (?V) Site1 Site2 Delta-P (ms) Norm Delta (ms) Right Median/Radial Dig I Comparison (Digit 1 - 10cm) Median ? 3.4 <2.9 38.9 Median Radial 0.6 Radial ? 2.8 <2.8 14.5 EMG ?Side Muscle Nerve Root Ins Act Fibs Psw Amp Dur Poly Recrt Int Pat Comment Right 1stDorInt Ulnar C8-T1 Nml Nml Nml Nml Nml 0 Nml Complete Right FlexCarRad Median C6-7 Nml Nml Nml Nml Nml 0 Nml Complete Right FlexCarpiUln Ulnar C8,T1 Nml Nml Nml Nml Nml 0 Nml Complete Right Biceps Musculocut C5-6 Nml Nml Nml Nml Nml 0 Nml Complete Right Triceps Radial C6-7-8 Nml Nml Nml Nml Nml 0 Nml Complete Right Deltoid Axillary C5-6 Nml Nml Nml Nml Nml 0 Nml Complete Left 1stDorInt Ulnar C8-T1 Nml Nml Nml Nml Nml 0 Nml Complete Left FlexCarRad Median C6-7 Nml Nml Nml Nml Nml 0 Nml Complete Left FlexCarpiUln Ulnar C8,T1 Nml Nml Nml Nml Nml 0 Nml Complete Left Biceps Musculocut C5-6 Nml Nml Nml Nml Nml 0 Nml Complete Left Triceps Radial C6-7-8 Nml Nml Nml Nml Nml 0 Nml Complete Left Deltoid Axillary C5-6 Nml Nml Nml Nml Nml 0 Nml Complete FINDINGS: Right median motor nerve showed prolonged distal latency, small amplitude and normal conduction velocity. Interlatency difference between right median and radial sensory nerve was 0.6. All other nerves tested were within normal. Concentric needle EMG was performed in selected muscles of the bilateral upper extremities. Study did not reveal signs of electric abnormalities as shown in the table above. IMPRESSION: 1. This is an abnormal study. 2. There is electrodiagnostic evidence for right moderate median neuropathy at the wrist, consistent with carpal tunnel syndrome. 3. There is no electrodiagnostic evidence for ulnar neuropathy, brachial plexopathy, or cervical radiculopathy. Thank you for your kind referral. Aye Champion MD, DIANA Board Certified, [place] Board [employer] and Rehabilitation (ABPMR) Board Certified, [place] Board of Electrodiagnostic Medicine (ABEM) CODIN [phone] x 2 extremities MTDD
--- OUTSIDE RECORDS SUMMARY | 2025-04-04 15:20 | XMS_ITS ---
Author Name [facility] Organization Unknown History of Medication Use Medication Directions Dispensed Refills Start Date End Date Stat us diclofenac (VOLTAREN) 1 % topical gel APLIQUE 2 G TOPICALLY DOS VECES AL JOSEFA 12/17/2024 active tirzepatide, weight loss, (Zepbound) 2.5 mg/0.5 mL solution Inject 2.5 mg under the skin every 7 (seven) days. 11/21/2024 12/31/2024 aborted valsartan (DIOVAN) 40 mg tablet Take 1 tablet (40 mg total) by mouth at bedtime. 11/05/2024 active cyclobenzaprine (FLEXERIL) 5 mg tablet TAKE 1 TABLET BY MOUTH AT BEDTIME NEEDED FOR MUSCLE SPASMS. 10/16/2024 active diclofenac (VOLTAREN) 50 mg EC tablet Take 1 tablet (50 mg total) by mouth 2 (two) times a day if needed (PAIN (WITH MEALS)). Do not crush, chew, or split. 08/22/2024 active lidocaine (LIDODERM) 5 % patch Apply 1 patch topically 1 (one) time each day if needed for moderate pain or severe pain. Apply to painful area 12 hours per day, remove for 12 hours. 08/22/2024 active diclofenac (VOLTAREN) 1 % gel Apply 4 g topically. 07/30/2021 active diazepam (VALIUM) 5 MG tablet Take 1 tab one hr prior to procedure. May repeat in 30 minutes if needed. 05/10/2021 active docusate sodium (COLACE) 100 MG capsule Take 1 capsule by mouth 2 (two) times a day. 03/05/2021 active polyethylene glycol (miraLAx) 17 GM/SCOOP powder Take 17 g by mouth. 03/05/2021 active psyllium (METAMUCIL) 58.6 % packet Take 1 packet by mouth. 03/05/2021 active amoxicillin-clavulanat e (AUGMENTIN) 875-125 MG per tablet Take 1 tablet by mouth 2 (two) times a day. For 7 days 11/17/2020 active ondansetron (ZOFRAN) 4 MG tablet Take 4 mg by mouth 3 times daily (every 8 hours) as needed. for nausea 11/17/2020 active methocarbamol (ROBAXIN) 500 MG tablet Take 500 mg by mouth. 07/08/2019 active naproxen (NAPROSYN) 500 MG tablet Take 500 mg by mouth. 07/08/2019 active Problems Problem Status Onset Date Problem Type Date of Resolution Source Hyperlipidemia active 2024-05-[address] [facility] DDD (degenerative disc disease), lumbar active 2019-12-10 [address] [facility] Hypothyroidism (acquired) active 2024-05-07 ProblemAct [facility] Vitamin D deficiency active 2022-06-12 ProblemAct [facility] Prediabetes active 2024-03-19 ProblemAct [facility] JAMMIE Severe obesity (BMI 35.0-39.9) with comorbidity (CMS/HCC V24, CMS/FORMERLY [facility] V28) active 2024-07-02 ProblemAct [facility] Epidural lipomatosis active EncounterDiagnosisA ct [facility] Lumbar radiculitis active 2020-05-27 ProblemAct [facility] Displacement of lumbar intervertebral disc without myelopathy active 2019-12-10 ProblemAct [facility]_THSFRA N KEM (obstructive sleep apnea) active 2022-07-20 ProblemAct [facility] Hypertension active 2024-07-02 ProblemAct [facility] SFR[facility] Diverticulosis active 2024-05-[address] [facility]_ [facility] Inguinal hernia bilateral, non-recurrent active 2024-05-07 ProblemAct [facility] DDD (degenerative disc disease), lumbar active 2019-12-10 ProblemAct [facility] Immunizations Vaccine Date Source Lot Number Status Pneumococcal conjugate 20 va lent (Prevnar 20, PCV 20) 2mo and older 11/05/2024 [facility] [id number] comple jimenez HepB-CpG (Heplisav-B) 18yo and older 11/20/2023 [facility]_THSFRAN [id number] completed Zoster recombinant (Shingrix ) 19yo and older 11/20/2023 [facility]_FREED[facility] [id number] completed HepB-CpG (Heplisav-B) 18yo and older 09/13/2023 [facility] [id number] completed Zoster recombinant (Shingrix ) 19yo and older 09/13/2023 [facility] [id number] completed Influenza Quadravalent, MDCK , 0.5ml, preservative free (Flucelvax) 6mo and older 02/07/2022 [facility]_CRISTIAN [id number] completed Tdap Tetanus diptheria acell ular pertussis (Boostrix; Adacel) 7yo and older 06/20/2018 [facility]IST[facility] [id number] completed Encounters Encounter Type Encounter Reason Primary Diagnosis Location Date [facility] 12/24/2024 Ambulatory Sacroiliitis, no t elsewhere classified [facility] 01/04/2022 Ambulatory [facility] 10/27/2021 Ambulatory Sacrococcygeal disorders, not elsewhere classified [facility] 10/07/2021 Ambulatory Radiculopathy, l umbar region [facility] 06/08/2021 Ambulatory Radiculopathy, l umbar region [facility] 05/10/2021 Ambulatory Radiculopathy, l umbar region [facility] 02/23/2021 Ambulatory Radiculopathy, l umbar region [facility] 02/04/2021 Care Team Organization Name Specialty Phone Email Start Date End Da te [facility] 12/24/2024 [facility] 12/24/2024 [facility] Primary [facility] 02/22/2022 [facility] PCP,No Primary Care 01/04/2022 [facility] NO PCP Primary Care 08/06/2020 01/04/2022
--- OUTSIDE RECORDS SUMMARY | 2025-04-04 15:20 | XMS_ITS | Encounter Summary ---
Author Organization [facility] Address [address] [place] [address] Care Team Providers Care Electronics Maintenance Technician Name Role Phone Pcp, Clarissa Primary Care Provider John Ramon MD Primary Care Provider [phone] Encounter Details Date Type Department Care Team (Late st Contact Info) Description 10/28/2021 Scanned Document [facility] [address] [place] [phone] Dago Richter MD Social History Tobacco Use Types Packs/Day Years Used Date Smoking Tobacco: Former Cigarettes 0 Q uit: 2017 Smokeless Tobacco: Never Alcohol Use Standard Drinks/Week Comments Yes 3 (1 standard drink = 0.6 oz pur e alcohol) Sex and Gender Information Value Date Recorded Sex Assigned at Not on file Legal Sex Male 2:31 PM EDT Gender Identity Not on file Sexual Orientation Not on file documented as of this encounter Plan of Treatment Not on file documented as of this encounter Visit Diagnoses Not on filedocumented in this encounter Care Teams Electronics Maintenance Technician Relationship Specialty Start Date End Date Pcp, No PCP - General General Medicine 12/03/19 04/25/22 John Zhu MD PCP - General 04/26/22 documented as of this encounter
--- OUTSIDE RECORDS SUMMARY | 2025-04-04 15:20 | XMS_ITS | Encounter Summary ---
Author Organization [facility] Address [address] [place] [address] Care Team Providers Care All Source Intelligence Analyst Name Role Phone NonhlanBradford mckoy MED STUDENT Primary Care Provi jet Pcp, No Primary Care Provider Siddhartha e John Zhu MD Primary Care Provider [phone] John Zhu MD Primary Care Provider Encounter Details Date Type Department Care Team (Late st Contact Info) Description 11/28/2019 Scanned Document [facility] NEUROSURGERY SCAN Neurosurgery, Scan Social History Tobacco Use Types Packs/Day Years Used Date Smoking Tobacco: Never Assessed Sex and Gender Information Value Date Recorded Sex Assigned at Not on file Legal Sex Male 2:31 PM EDT Gender Identity Not on file Sexual Orientation Not on file COVID-19 Exposure Response Date Recorded In the last month, have you been in contact with someone who was confirmed or suspected to have Coronavirus / COVID-19? Unable to assess 11/29/2019 10:31 AM EDT documented as of this encounter Plan of Treatment Not on file documented as of this encounter Visit Diagnoses Not on filedocumented in this encounter Care Teams All Source Intelligence Analyst Relationship Specialty Start Date End Date Bradford Dillon, MED STUDENT [address] [place] [address] PCP - General 11/29/19 12/02/19 Pcp, No PCP - General General Medicine 12/03/19 04/25/22 John Zhu MD PCP - General 11/28/19 John Zhu MD PCP - General 04/26/22 documented as of this encounter
--- OUTSIDE RECORDS SUMMARY | 2025-04-04 15:20 | XMS_ITS | Encounter Summary ---
Author Organization [facility] Address [address] [place] [address] Care Team Providers Care Anesthesiologist Attending Name Role Phone John Zhu MD Primary Care Provider [phone] Reason for Visit * Reason Onset Date Comments Med Refill 04/02/2025 Encounter Details Date Type Department Care Team ([facility] st Contact Info) Description 04/02/2025 Telephone Bariatric Surgery - [place] [address] [facility] [address] [place] [address] Lorenzo De La Cruz MD [address] [place] [phone] Social History Tobacco Use Types Packs/Day Years Used Date Smoking Tobacco: Former Cigarettes 1 35 0 04/17/1982 - 04/13/2017 Smokeless Tobacco: Never Alcohol Use Standard Drinks/Week Comments Yes 5 (1 standard drink = 0.6 oz pur e alcohol) Housing Instability Answer Date Recorde d Are you worried that in the next 2 months you may not have stable housing? No 11/05/2024 Food Access & Nutrition Answer Date Rec orded Do you have access to a vari ety of food including fruits and vegetables? Yes 11/05/2024 Access to Healthcare Answer Date Record ed Within the last 3 months, ho w many times did you visit the emergency department for your medical care? 0 11/05/2024 Health Literacy Answer Date Recorded How often do you need to hav e someone help you when you read instructions, pamphlets, or other written material from your doctor or pharmacy? Never 11/05/2024 Caregiver: How often do you need to have someone help you when you read instructions, pamphlets, or other written material from your doctor or pharmacy? Not on file 11/05/2024 Financial Risk Answer Date Recorded How hard is it for you to pa y for the very basics like food, housing, medical care, and air conditioning / heating? Not very hard 11/05/2024 Transportation Answer Date Recorded Has the lack of transportati on kept you from meetings, work, or from getting things needed for daily living? No Has the lack of transportati on kept you from medical appointments or from getting medications? No 11/05/2024 Social Isolation Answer Date Recorded How often do you feel lonely or isolated from th ose around you? Never 11/05/2024 Food Risk Answer Date Recorded Within the past 12 months we worried whether our food would run out before we got money to buy more. Never true 11/05/2024 Within the past 12 months th e food we bought just didn't last and we didn't have money to get more. Never true 11/05/2024 Dependent Care Answer Date Recorded Do you need help finding or paying for care for your loved ones. For example, child development assistant or elderly care for an older adult? No 11/05/2024 Education Answer Date Recorded Do you think completing more education or training, like finishing a GED, going to college, or learning a trade, would be helpful for you? No 11/05/2024 Employment and Income Answer Date Recor ded During the last four weeks, have you been actively looking for work? No 11/05/2024 Living Situation Answer Date Recorded What is your living situation? 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 Answer Date of Assessment Author No 02/24/2024 5:16 PM Paulette Oliveros RN * Are you blind or do you have serious difficulty seeing, even when wearing glasses? Answer Date of Assessment Author No 02/24/2024 5:16 PM Paulette Oliveros RN * Do you have serious difficulty walking or climbing stairs? Answer Date of Assessment Author No 02/24/2024 5:16 PM Paulette Oliveros RN * Do you have serious difficulty dressing or bathing? Answer Date of Assessment Author No 02/24/2024 5:16 PM Paulette Oliveros RN * Because of a physical, mental, or emotional condition, do you have serious difficulty doing errandsalone such as visiting the doctor? Answer Date of Assessment Author No 02/24/2024 5:16 PM Paulette Oliveros RN documented as of this encounter Mental Status * Because of a physical, mental, or emotional condition, do you have serious difficulty concentrating, remembering, or making decisions? (5 years old or older) Answer Entry Date Author No 02/24/2024 5:16 PM Paulette Oliveros RN documented in this encounter Ordered Prescriptions Prescription Sig Dispense Quantity Refills Last Filled Start Date End Date tirzepatide, weight loss, (Zepbound) 7.5 mg/0.5 mL injection Inject 0.5 mL (7.5 mg total) under the skin every 7 (seven) days for 28 days. 2 mL 04/03/2025 05/01/2025 documented in this encounter Progress Notes * Sarita Cabello - 04/02/2025 10:29 AM EST Patient did well on Zepbound 5 mgs and would like a refill with titration. If appropriate, please send script for Zepbound 7.5 mgs to their pharmacy. The patient does have a follow up in 05/27/2025 documented in this encounter Plan of Treatment Upcoming Encounters Date Type Department Care Team (Late st Contact Info) Description 04/30/2025 8:00 AM EST Evaluation [facility] [address] [facility] [address] [place] [address] Catarino Mi, PT 05/02/2025 10:00 AM EST Office Visit Neurosurgery [place] [facility] [address] [facility] [address] [place] [phone] Opal Davey MD [address] [place], [place] [phone] 05/07/2025 10:00 AM EST Office Visit Orthopedic Surgery - [address] [place] [phone] Mayda White PA [address] [place] [address] 05/27/2025 12:30 PM EST Nutrition Bariatric Surgery - [address] [place] [phone] Ivory Salmon, HUGO [address] [place] [phone] 06/03/2025 9:30 AM EST Office Visit Adult [facility] [address] [place] [address] John Zhu MD [address] [place] [address] 06/12/2025 11:30 AM EST Office Visit Bariatric Surgery - [address] [phone] Lorenzo De La Cruz MD [address] [place] [address] 08/19/2025 10:00 AM EDT Office Visit General Surgery - [address] [place] [phone] Wiliam Aguilar DO [address] [place] [address] 09/19/2025 9:30 AM EDT Office Visit Pulmonology - [address] [place] [phone] Marie Stoll MD [address] [place] [phone] documented as of this encounter Goals Goal Patient Goal Type Associated Problems Recent Progress Patient-Stated? Author Autogenerat ed Goal Care Plan Autogenerated Problem No Evelyn Velasquez MA documented as of this encounter Visit Diagnoses Not on filedocumented in this encounter Additional Health Concerns Active Problems Noted Date Diagnosed Date Autogenerated Problem 03/07/2025 Assessment Noted Time PHQ-9 Depression Total Score: 0 11/06/19 25 9:26 AM EDT documented as of this encounter Care Teams Anesthesiologist Attending Relationship Specialty Start Date End Date John Zhu MD [address] [place] [phone] PCP - General Internal Medicine 02/25/24 documented as of this encounter
--- OUTSIDE RECORDS SUMMARY | 2025-04-04 15:20 | XMS_ITS | Clinical Summary ---
Author Organization [facility] Address [address] [place], [place] [id number] Care Team Providers Care Inspector Multifocal Lens Name Role Phone John Zhu MD Primary Care Provider [phone] Allergies No known active allergies Medications naproxen (NAPROSYN) 500 MG tablet Take 500 mg by mouth. 07/08/2019 Active methocarbamol (ROBAXIN) 500 MG tablet Take 500 mg by mouth. 07/08/2019 Active amoxicillin-clav ulanate (AUGMENTIN) 875-125 MG per tablet Take 1 tablet by mouth 2 (two) times a day. For 7 days 11/17/2020 Active ondansetron (ZOFRAN) 4 MG tablet Take 4 mg by mouth 3 times daily (every 8 hours) as needed. for nausea 11/17/2020 Active pregabalin (LYRICA) 75 MG capsuleIndicatio ns:Lumbar radiculitis Take 1 capsule (75 mg total) by mouth 3 (three) times a day. 84 capsule 02/04/2021 Active diazepam (VALIUM) 5 MG tabletIndication s:Lumbar radiculitis,Anxi ety due to invasive procedure Take 1 tab one hr prior to procedure. May repeat in 30 minutes if needed. 2 tablet 05/10/2021 Active diclofenac (VOLTAREN) 1 % gel Apply 4 g topically. 07/30/2021 Active docusate sodium (COLACE) 100 MG capsule Take 1 capsule by mouth 2 (two) times a day. 03/05/2021 Active polyethylene glycol (miraLAx) 17 GM/SCOOP powder Take 17 g by mouth. 03/05/2021 Active psyllium (METAMUCIL) 58.6 % packet Take 1 packet by mouth. 03/05/2021 Active Active Problems Problem Noted Date Diagnosed Date Displacement of lumbar inter vertebral disc without myelopathy 12/10/2019 DDD (degenerative disc disease), lumbar 12/10/19 Social History Tobacco Use Types Packs/Day Years [...] on file Sexual Orientation Not on file Last Filed Vital Signs Vital Sign Reading Time Taken Comments Blood Pressure 132/94 01/04/2022 10:54 AM EDT Pulse 83 01/04/2022 10:54 AM EDT Temperature 36.3 C (97.3 F) 01/04/2022 10:54 AM EDT Respiratory Rate 16 01/04/2022 10:54 AM EDT Oxygen Saturation 94% 01/04/2022 10:54 AM EDT Inhaled Oxygen Concentration - - Weight 105 kg (231 lb) 01/04/2022 10:54 AM EDT Height 175.3 cm (5' 9 ) 01/04/2022 10:54 AM EDT Body Mass Index 34.11 01/04/2022 10:54 AM EDT Plan of Treatment Health Maintenance Due Date Last Done Comments Hepatitis C Virus Screening 1968 HIV Screening 1981 DTaP/Tdap/Td Vaccines (1 - Tdap) 07/24/1987 Hepatitis B Vaccines (1 of 3 - 19+ 3-dose series) 07/24/1987 Colonoscopy 2013 Pneumococcal Vaccines 50+ (1 of 1 - PCV) 2018 Zoster (Shingles) Vaccine (1 of 2) 2018 Influenza Vaccine 11/15/2024 COVID-19 Vaccine (3 - 2024- season) 12/16/202404/2020, 07/18/2020 RSV Vaccine 50 years and old er and Patients (1 - 1-dose 75+ series) 07/24/2043 [place] [facility] [place] [facility] [place] [employer] Care Teams Inspector Multifocal Lens Relationship Specialty Start Date End Date John Zhu MD PCP - General 04/26/22
--- OUTSIDE RECORDS SUMMARY | 2025-04-04 15:20 | XMS_ITS | Encounter Summary ---
Author Organization [facility] Address [address] [place] [address] Care Team Providers Care Aircraft Ordnance Systems Mechanic Name Role Phone NonhlanBradford mckoy MED STUDENT Primary Care Provi jet Pcp, No Primary Care Provider Siddhartha e John Zhu MD Primary Care Provider [phone] John Zhu MD Primary Care Provider Encounter Details Date Type Department Care Team (Late st Contact Info) Description 11/28/2019 Scanned Document [facility] NEUROSURGERY SCAN Neurosurgery, Scan Social History Tobacco [...] on filedocumented in this encounter Care Teams Aircraft Ordnance Systems Mechanic Relationship Specialty Start Date End Date Bradford Dillon, MED STUDENT [address] [place] [address] PCP - General 11/29/19 12/02/19 Pcp, No PCP - General General Medicine 12/03/19 04/25/22 John Zhu MD PCP - General 11/28/19 John Zhu MD PCP - General 04/26/22 documented as of this encounter
--- OUTSIDE RECORDS SUMMARY | 2025-04-04 15:20 | XMS_ITS | Encounter Summary ---
Author Organization [facility] Address [address] [place] [address] Care Team Providers Care Summer Law Associate Name Role Phone Pcp, No Primary Care Provider John Ramon MD Primary Care Provider [phone] Encounter Details Date Type Department Care Team (Late st Contact Info) Description 05/31/2021 Scanned Document [address] [place] [id number] Primary Care, Scan Social History Tobacco Use Types Packs/Day [...] on file documented as of this encounter Procedures Procedure Name Priority Date/Time Associated Diagnosis Comments HX OUTSIDE ORDER 06/08/2021 HX OUTSIDE ORDER 06/02/2021 HX OUTSIDE ORDER 05/31/2021 documented in this encounter Results * HX OUTSIDE ORDER (06/08/2021) us Scan Primary Care HX AMB PROCEDURES Final Result * HX OUTSIDE ORDER (06/02/2021) us Scan Primary Care HX AMB PROCEDURES Final Result * HX OUTSIDE ORDER (05/31/2021) us Scan Primary Care HX AMB PROCEDURES Final Result documented in this encounter Visit Diagnoses Not on filedocumented in this encounter Care Teams Summer Law Associate Relationship Specialty Start Date End Date Pcp, No PCP - General General Medicine 12/03/19 04/25/22 John Zhu MD PCP - General 04/26/22 documented as of this encounter
--- OUTSIDE RECORDS SUMMARY | 2025-04-04 15:21 | XMS_ITS | Encounter Summary ---
Author Organization [facility] Address [address] [place] [address] Care Team Providers Care Instructional Support Assistant Name Role Phone Pcp, No Primary Care Provider John Ramon MD Primary Care Provider [phone] Encounter Details Date Type Department Care Team (Late st Contact Info) Description 06/10/2020 Scanned Document [facility] NEUROSURGERY SCAN Neurosurgery, Scan Social History Tobacco [...] on filedocumented in this encounter Care Teams Instructional Support Assistant Relationship Specialty Start Date End Date Pcp, No PCP - General General Medicine 12/03/19 04/25/22 John Zhu MD PCP - General 04/26/22 documented as of this encounter
--- OUTSIDE RECORDS SUMMARY | 2025-04-04 15:21 | XMS_ITS | Encounter Summary ---
Author Organization [facility] Address [address] [place] [address] Care Team Providers Care Impregnator And Drier Name Role Phone Pcp, No Primary Care Provider John Ramon MD Primary Care Provider [phone] Encounter Details Date Type Department Care Team (Late st Contact Info) Description 07/13/2020 Scanned Document [facility] NEUROSURGERY SCAN Neurosurgery, Scan Social History Tobacco [...] on filedocumented in this encounter Care Teams Impregnator And Drier Relationship Specialty Start Date End Date Pcp, No PCP - General General Medicine 12/03/19 04/25/22 John Zhu MD PCP - General 04/26/22 documented as of this encounter
--- OUTSIDE RECORDS SUMMARY | 2025-04-04 15:21 | XMS_ITS | Encounter Summary ---
Author Organization [facility] Address [address] [place] [address] Care Team Providers Care Scutcher Tender Name Role Phone Pcp, No Primary Care Provider John Ramon MD Primary Care Provider [phone] Encounter Details Date Type Department Care Team (Late st Contact Info) Description 05/13/2020 Scanned Document [facility] NEUROSURGERY SCAN Neurosurgery, Scan Social History Tobacco [...] on filedocumented in this encounter Care Teams Scutcher Tender Relationship Specialty Start Date End Date Pcp, No PCP - General General Medicine 12/03/19 04/25/22 John Zhu MD PCP - General 04/26/22 documented as of this encounter
--- OUTSIDE RECORDS SUMMARY | 2025-04-04 15:21 | XMS_ITS | Clinical Summary ---
Author Organization [address] Address [address] [place] [address] Phone Care Team Providers Care Wood Boatbuilder Name Role Phone John Zhu MD Primary Care Provider [phone] Allergies No known active allergies Medications lidocaine (LIDODERM) 5 % patch Apply 1 patch topically 1 (one) time each day if needed for moderate pain or severe pain. Apply to painful area 12 hours per day, remove for 12 hours. 30 each 2 5 Active valsartan (DIOVAN) 40 mg tablet Take 1 tablet (40 mg total) by mouth at bedtime. 90 tablet 1 5 Active diclofenac (VOLTAREN) 1 % topical gel APLIQUE 2 G TOPICALLY DOS VECES AL JOSEFA 100 g 1 5 Active gabapentin (NEURONTIN) 300 mg capsule TOME 1 C PSULA POR V A ORAL TODOS LOS D AL ACOSTARSE 5 Active oxyCODONE (ROXICODONE) 5 mg immediate release tablet Take 1-2 tablets (5-10 mg total) by mouth every 6 (six) hours if needed for severe pain. Max Daily Amount: 40 mg 40 tablet 5 Active tirzepatide, weight loss, (Zepbound) 7.5 mg/0.5 mL injection Inject 0.5 mL (7.5 mg total) under the skin every 7 (seven) days for 28 days. 2 mL 5 05/01/19 26 Active diclofenac (VOLTAREN) 50 mg EC tablet Take 1 tablet (50 mg total) by mouth 2 (two) times a day if needed (PAIN (WITH MEALS)). Do not crush, chew, or split. 28 tablet 1 03/07/20 25 Discontinue d(Stop Taking at Discharge) tirzepatide, weight loss, (Zepbound) 5 mg/0.5 mL injection Inject 0.5 mL (5 mg total) under the skin every 7 (seven) days. 2 mL 03/26/20 25 Active Problems Problem Noted Date Diagnosed Date Spinal stenosis, lumbar bethanie on without neurogenic claudication 02/27/2025 Lumbar stenosis with neurogenic claudication 08/2024 Assessment & Plan (03/18/2025 2:40 PM EST): Patient is 12 days s/p L4-5, L5-S1 decompression. He notes that his legs do feel better, he has gone out to walk at the store for example. He has not had any wound drainage, fevers. He used the oxycodone for a few days after surgery, no longer is taking it. He notes residual numbness in the toes. Has similar/same low back pain as preop, which we had discussed in detail at last office visit could be related to vertebrogenic back pain, offered him L5, S1 Intracept (if/when hospital gives us final approval to continue to offer this latter procedure.) Mr. Brown is doing well s/p L4-5, L5-S1 decompression. He will follow-up in [address] Davey, see what his symptoms are at that time, he may benefit from L5, S1 Intracept procedure. He would like to go to physical therapy for some core strengthening exercises. He will wait a couple more weeks to let the wound heal then start PT. All questions answered. We used spinning lathe operator Robert #[id number]. Assessment & Plan (02/19/2025 8:03 PM EST): Pt was seen in October for chronic low back pain, and lumbar stenosis with epidural lipomatosis, with neurogenic claudication. He tried to go to aquatic PT but it was not covered by his insurance company. He was able to start Zepbound and changed his diet, has been able to lose 20 lbs in the last 2 months, but has not seen improvement in the neurogenic claudication or back pain. He states on average his back pain is 6/10, at best would be 3/10, gets worse with walking, bending forward like to brush his teeth, cannot tolerate lifting. When walking his legs go numb, he needs to sit down/ take breaks or lean forward. He had a work injury on Monday lifting a wood pallet, his back locked up on him, and he is scheduled to start physical therapy at [facility] in [place], [place]. His 2024 Lumbar MRI was again reviewed together on the computer in detail, with [employer] Malay interpretor Luis # [id number], he has lumbar stenosis with epidural lipomatosis, worse at L4-5, L5-S1. He also has Modic changes at L5 and S1 that could be contributing to his chronic LBP, and vertebrogenic back pain. Dr. Davey reviewed MRI again today, and agrees that she can offer L4-5, L5-S1 decompression to try to help his walking sxs and neurogenic claudication. If he has persistent significant LBP after the decompression, to address the chronic LBP/ vertebrogenic back pain, she can offer him L5, S1 Intracept procedure for VBN ablation. He appears to understand these two problems and surgery options. He understands back pain can be multifactorial and may still have some back pain postop. Surgeries discussed in detail, risks and benefits, including but not limited to need for general anesthesia, risks for spinal fluid leak, damage to a nerve root, infection, hematoma, no improvement in sxs. Verito and instructions given to pt, he is aware he would have to stop the Zepbound a week prior to surgery, clear liquids day before surgery, no NSAIDS one week prior. All questions answered. He would like to proceed with the L4-5, L5- S1 decompression and if needed also L5, S1 Intracept (if/when hospital gives us final approval to continue to offer this latter procedure.) Vertebrogenic low back pain 02/19/2025 Class 2 obesity with body ma ss index (BMI) of 36.0 to 36.9 in adult 07/02/2024 Hypertension 07/02/2024 Diverticulosis 05/07/2024 Hyperlipidemia 05/07/2024 Hypothyroidism (acquired) 05/07/2024 Inguinal hernia bilateral, non-recurrent 025 Prediabetes 03/19/2024 KEM (obstructive sleep apnea) 07/20/2022 Overview (05/07/2024): severe Vitamin D deficiency 06/12/2022 Lumbar radiculitis 05/27/2020 DDD (degenerative disc disease), lumbar 12/10/19 Displacement of lumbar inter vertebral disc without myelopathy 12/10/2019 Resolved Problems Problem Noted Date Diagnosed Date Resolved Date Straining with stools 05/07/20242024 Change in bowel habits 05/07/202407/02 Abdominal pain 05/07/2024 07/02/2024 Snoring 06/12/2022 07/02/2024 Encounters Date Type Department Care Team Description 04/02/2025 Telephone Bariatric Surgery [address] [phone] Lorenzo De La Cruz MD 03/21/2025 10:15 AM EST Ancillary Procedure Pulmonology [address] [phone] Mild emphysema (CMS/HCC V24, CMS/HCC V28) 03/21/2025 8:45 AM EST Office Visit Pulmonology [address] [phone] Marie Stoll MD KEM (obstructive sleep apnea) (Primary Dx); Mild emphysema (CMS/HCC V24, CMS/HCC V28) 03/18/2025 2:00 PM EST Office Visit [place]surgery [place] [address] [phone] Mary Ellen Cheung PA Lumbar stenosis with neurogenic claudication (Primary Dx); Vertebrogenic low back pain 03/11/2025 11:00 AM EST Nutrition Bariatric Surgery [address] [phone] [address] Class 2 obesity with body mass index (BMI) of 36.0 to 36.9 in adult, unspecified obesity type, unspecified whether serious comorbidity present (Primary Dx) 03/06/2025 11:48 AM EST Anest[address] Event [facility] [address] [place] [phone] Abilio Mckeon MD Devlin, Brandon, SRNA 03/06/2025 11:00 AM EST - 03/06/2025 2:[address] [facility] OR [address] [place] [phone] Opal Davey MD L4-5 L5-S1 OPEN decompression [61112 (CPT ) +1 more] 03/06/2025 8:51 AM EST - 03/07/2025 11:54 AM EST Hospital Encounter [facility] [address] [place] [phone] Opal Davey MD Pain; Spinal stenosis, lumbar region without neurogenic claudication Discharge Disposition: Home or Self Care 02/24/2025 Telephone Pulmonology [facility] 175 [facility] [address] [place] [phone] Marie Stoll MD 02/24/2025 Telephone Neurosurgery [facility] 175 [facility] [address] [place] [phone] Evelyn Storey [place] 02/20/2025 Telephone Bariatric Surgery [facility] 175 [facility] [address] [place] [phone] Lorenzo De La Cruz MD 02/19/2025 Telephone Orthopedic Surgery [facility] 160 [address] [facility] [address] [place] [phone] Yared Waite MA 02/18/2025 1:00 PM EST Office Visit Neurosurgery [facility] 175 [facility] [address] [place] [phone] Mary Ellen Cheung PA Lumbar stenosis with neurogenic claudication (Primary Dx); Vertebrogenic low back pain 02/18/2025 Telephone Pulmonology [facility] 175 [facility] [address] [place] [address] Francisco Javier Monroy MA 01/30/2025 9:30 AM EDT Office Visit Orthopedic Surgery [facility] 175 [facility] [address] [place] [phone] Mayda White PA Bilateral carpal tunnel syndrome (Primary Dx); Cubital tunnel syndrome, bilateral 01/13/2025 Telephone Bariatric Surgery [facility] 175 [facility] [address] [place] [phone] Lorenzo De La Cruz MD 01/09/2025 9:30 AM EDT Consult Bariatric Surgery [facility] 175 [facility] [address] [place] [address] Lorenzo De La Cruz MD Severe obesity (BMI 35.0-39.9) with comorbidity (CMS/HCC V24, CMS/HCC V28) from Last 3 Months Immunizations Immunization Administration Dates Next Due HepB-CpG (Heplisav-B) 18yo and older 11/20/2023, 09/13/2023 Influenza Quadravalent, MDCK , 0.5ml, preservative free (Flucelvax) 6mo and older 02/07/2022 Pneumococcal conjugate 20 va lent (Prevnar 20, PCV 20) 2mo and older 11/05/2024 Tdap Tetanus diptheria acell ular pertussis (Boostrix; Adacel) 7yo and older 06/20/2018 Zoster recombinant (Shingrix) 19yo and older 08/2023,09/13/2023 Surgical History Surgery Date Site/Laterality Comments COLONOSCOPY 10/03/2018 negative COLONOSCOPY Performed on June 12, [address] Gonzalez-normal study LUMBAR FUSION aborted CHOLECYSTECTOMY BACK SURGERY 03/06/2025 L4-5, L5-S1 decompression, Dr. Davey Medical History Medical History Date Comments History of diverticulitis normal colonoscopy 2015 Chronic left-sided low back pain with left-sided sciatica 02/13/2018 Hyperlipidemia Subclinical hypothyroidism Abdominal pain Change in bowel habits Inguinal hernia bilateral, non-recurrent Diverticulosis Straining with stools Hypertension 07/02/2024 Sleep apnea Family History Medical History Relation Name Comments Other: nasal cancer Brother Kidney failure Father dialysis Hypertension Mother Relation Name Status Comments Brother Father Mother Social History Tobacco Use Types Packs/Day Years Used Date Smoking Tobacco: Former Cigarettes 1 35 0 04/17/1982 - 04/13/2017 Smokeless Tobacco: Never Tobacco Cessation:Counseling Given: Not Answered Alcohol Use Standard Drinks/Week Comments Yes 5 [...] for your loved ones. For example, child care giver or elderly care for an older adult? 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 Not on file Not on file Not on file Last Filed Vital Signs Vital Sign Reading Time Taken Comments Blood Pressure 122/78 03/21/2025 8:41 AM EST Pulse 88 03/21/2025 8:41 AM EST Temperature 36.5 C (97.7 F) 03/21/2025 8:41 AM EST Respiratory Rate 20 03/21/2025 8:41 AM EST Oxygen Saturation 97% 03/21/2025 8:41 AM EST Inhaled Oxygen Concentration - - Weight 106 kg (233 lb) 03/21/2025 8:41 AM EST Height 175.3 cm (5' 9 ) 03/21/2025 8:41 AM EST Body Mass Index 34.41 03/21/2025 8:41 AM EST Plan of Treatment Upcoming Encounters Date Type Department Care Team (Late st Contact Info) Description 04/30/2025 8:00 AM EST Evaluation [facility] Outpatient Rehabilitation [facility] 175 [facility] [address] [place] [phone] Catarino Mi, PT 05/02/2025 10:00 AM EST Office Visit [place]surgery [place] [facility] 175 [facility] [address] [place] [address] Opal Davey MD [address] [place] [address] 05/07/2025 10:00 AM EST Office Visit Orthopedic Surgery [facility] 175 [facility] [address] [place] [phone] Mayda White PA [address] [place] [address] 05/27/2025 12:30 PM EST Nutrition Bariatric Surgery - [address] [place] [phone] Ivory Salmon, HUGO [address] [place] [phone] 06/03/2025 9:30 AM EST Office Visit Adult Medicine [facility] [address] [place], [place] [phone] John Zhu MD [address] [place] [phone] 06/12/2025 11:30 AM EST Office Visit Bariatric Surgery - [address] [phone] Lorenzo De La Cruz MD [address] [place] [phone] 08/19/2025 10:00 AM EDT Office Visit General Surgery - [address] [place] [phone] Wiliam Aguilar, [address] [place] [phone] 09/19/2025 9:30 AM EDT Office Visit Pulmonology - [address] [place] [phone] Marie Stoll MD [address] [place] [address] Health Maintenance Due Date Last Done Comments RSV Immunization Adult Patients (1 - Risk 50-74 years 1-dose series) 2018 COVID-19 Vaccine (3 - season) 2024 08/15/2020, 07/18/2020 Influenza Vaccine (#1) 2024 02/07/2022 Hypertension/CHF/CAD Annual BMP Blood Test 11/05/2025 11/05/2024, 07/10/2024, 02/27/2024, Additional history exists Social Influencers of Health Screening 11/05/2025 11/05/2024 Lung Cancer Screening (Low Dose CT) 12/10/2025 12/10/2024 DTaP,Tdap,and Td Vaccines (2 - Td or Tdap) 06/20/2028 06/20/2018 Cholesterol Screening (Lipid Panel) 11/05/2029 11/05/2024, 08/23/2024, 02/20/2024 Colorectal Cancer Screening: Colonoscopy 06/12/2030 06/12/2020 Hepatitis C Screening Completed 07/30/2021 Hepatitis B Vaccines Completed 11/20/2023, 09/13/19 Zoster Vaccines Completed 11/20/2023, 09/13/2023 Depression Screening Completed 11/05/2024 Pneumococcal Vaccine: 50+ Years Completed 11/05/2024 HIB Vaccines Aged Out No longer eligi ble based on patient's age to complete this topic HIV Screening Discontinued HPV Vaccines Aged Out No longer eligi ble based on patient's age to complete this topic Hepatitis A Vaccines Aged Out No long er eligible based on patient's age to complete this topic IPV Vaccines Aged Out No longer eligi ble based on patient's age to complete this topic MMR Vaccines Aged Out No longer eligi ble based on patient's age to complete this topic Meningococcal ACWY Vaccine Aged Out N o longer eligible based on patient's age to complete this topic Meningococcal B Vaccine Aged Out No l onger eligible based on patient's age to complete this topic RSV Immunization Patients Under 20 months Aged Out No longer eligible based on patient's age to complete this topic Varicella Vaccines Aged Out No longer eligible based on patient's age to complete this topic Goals Goal Patient Goal Type Associated Problems Recent Progress Patient-Stated? Author Autogenerat ed Goal Care Plan Autogenerated Problem No Evelyn Velasquez MA Medical Devices Implanted Type Area Kalsominer Device Identifier Shelf Expiration Date Model / Serial / Lot Powder Surgifoam Absorb Gel - Sn/A - [id number] Implanted:Qty : 1 on 03/06/2025 by Opal Davey MD at [facility] [employer] N/A: Spine Lumbar [employer] [id number] 11/05/20261977 / N/A / [id number] Procedures Procedure Name Priority Date/Time Associated Diagnosis Comments PULMONARY FUNCTION TESTING Routine 03/21/2025 10:24 AM EST Mild emphysema (CMS/HCC V24, CMS/HCC V28) OXYGEN THERAPY, ADULT Routine 03/06/2025 1:59 PM EST XR SPINE 1 VIEW Routine 03/06/2025 1:32 PM EST Pain TISSUE EXAM Routine 03/06/2025 12:52 PM EST Spinal stenosis, lumbar region without neurogenic claudication TH AN ENDOTRACHEAL(NO CHARGE) Routine 03/06/2025 12:19 PM EST [facility] FACETECTOMY [facility] FORAMINOTOMY SGL VERT SEGM EA ADDL VERT C/TH LUMB 03/06/2025 11:48 AM EST Spinal stenosis, lumbar region without neurogenic claudication Case Notes C-eagle [employer] Spanish Interpreter [facility] FACETECTOMY & FORAMINOTOMY SINGLE VERTEBRAL SEGMENT LUMBAR 03/06/2025 11:48 AM EST Spinal stenosis, lumbar region without neurogenic claudication Case Notes C-eagle [employer] Spanish Interpreter PROCEDURAL ECG Routine 03/06/2025 9:16 AM EST POLYSOMNOGRAM WITH CPAP Routine 02/14/2025 9:[address] LUNG SCREENING Routine 12/10/2024 10:50 AM EDT Encounter for screening for malignant neoplasm of respiratory organs Personal history of nicotine dependence BASIC METABOLIC PANEL Routine 11/05/2024 9:28 AM EDT Routine history and physical examination of adult LIPID PANEL WITH REFLEX TO DIRECT LDL Routine 11/05/2024 9:28 AM EDT Routine history and physical examination of adult Hyperlipidemia, unspecified hyperlipidemia type HEPATITIS C SCREENING Routine 07/30/2021 HM COLONOSCOPY Routine 06/12/2020 from Last 3 Months or Most Recently Relevant to Health Maintenance Results * Pulmonary function testing: Spirometry with Bronchodilator, Carbon Monoxide Diffusing Capacity, Vital Capacity Test, Nitrogen Wash Out (03/21/2025 10:24 AM EST) Impressions Marie Stoll MD - 03/21/2025 10:24 AM EST 03/21/2025 Spirometry FEV1 is 90% normal, FVC is 85% normal, FEV1/FVC ratio is normal, no improvement in FEV1 post bronchodilators Lung volume TLC is 90% normal, RV/TLC is 100% normal Diffusion DLCO 101% predicted, DLCO/VA is 118% predicted In summary, this is a normal PFT us Marie Stoll MD PFT ORDERABLES Final Result * XR Spine 1 View (03/06/2025 1:32 PM EST) Anatomical Region Laterality Modality Spine Radio Fluoroscop y 03/07/2025 7:57 AM EST Impressions 03/07/2025 7:58 AM EST Metallic probes are positioned as above. Code 92734 The dose-area product for this procedure was 91.46 uGy*m2. PQRI CPT II G9500 -------- FINAL REPORT -------- Dictated By: Pramod Morales Dictated Date: 03/07/2025 07:57 ET Assigned Physician: Pramod Moraels Reviewed and Electronically Signed By: Pramod Morales Signed Date: 03/07/2025 07:58 ET Workstation ID: [id number] Transcribed By: Self Edit Transcribed Date: 03/07/2025 07:57 ET Narrative 03/07/2025 7:58 AM EST HISTORY: The patient is a 54-year-old male undergoing lumbar spine surgery. FINDINGS: 3 fluoroscopic spot lateral radiographs of the lower lumbar spine obtained in the operating room are submitted. The first image demonstrates a metallic probe projecting posterior to the L4-5 interspace. The second and third images each demonstrates a metallic probe projecting posterior to the L5-S1 interspace. The alignment of the included bony structures is anatomic. No fracture is seen. Procedure Note Pramod Morales MD - 03/07/2025 HISTORY: The patient is a 54-year-old male undergoing lumbar spinesurgery. FINDINGS: 3 fluoroscopic spot lateral radiographs of the lower lumbarspine obtained in the operating room are submitted. The first imagedemonstrates a metallic probe projecting posterior to the L4-5 interspace.The second and third images each demonstrates a metallic probe projectingposterior to the L5-S1 interspace. The alignment of the included bonystructures is anatomic. No fracture is seen. IMPRESSION: Metallic probes are positioned as above. Code 82896 The dose-area product for this procedure was 91.46 uGy*m2. PQRI CPT II G9500 -------- FINAL REPORT -------- Dictated By: Pramod Morales Dictated Date: 03/07/2025 07:57 ET Assigned Physician: Pramod Morales Reviewed and Electronically Signed By: Pramod Morales Signed Date: 03/07/2025 07:58 ET Workstation ID: [id number] Transcribed By: Self Edit Transcribed Date: 03/07/2025 07:57 ET us Opal Davey MD IMG XR PROCEDURES Final Result * Tissue exam (03/06/2025 12:52 PM EST) Final Diagnosis L4-5 and L5-S1 bone and ligament-decompre ssion: -BONE, CARTILAGE AND FIBROELASTIC TISSUE WITH DEGENERATIVE CHANGES 03/10/2025 12:55 PM EST [facility] at 1255 EST Gross Description A. Back, Lower, L4-5 and L5-S1 bone and ligament: Labeled back L L4-5 and . Received in formalin is a 5.8 x 4.2 x 1.3 cm aggregate of irregular pink-yellow to white bone and rubbery tissue fragments. The trabecular bone is pink-yellow and unremarkable. No masses or lesions are appreciated. Siebel Consultant sections are submitted following decalcification in one cassette, multiple pieces. DEVORA 03/10/2025 12:55 PM EST [facility] Disclaimer Unless otherwise specified, all tissue is 10% NB formalin fixed and paraffin embedded. 03/10/2025 12:55 PM EST [facility] Tissue Lower back structure / Unknown 03/06/2025 12:52 PM EST 03/06/2025 3:18 PM EST us Opal Davey MD LAB PATHOLOGY ORDERABLES Final Result [facility] [address] [place] [address], [place] [phone] * TH AN ENDOTRACHEAL(NO CHARGE) (03/06/2025 12:19 PM EST) Narrative Robbie Watts SRNA - 03/06/2025 12:19 PM EST EDDIE Davis 03/06/2025 12:20 PM General Information and Staff Patient location during procedure: OR Resident/SECURITY BUSINESS ANALYST: EDDIE Davis Performed by: EDDIE Davis Authorized by: Ruben Palmer MD Intubation Airway not difficult Reason: elective Final Airway Details Successful intubation technique: direct laryngoscopy Adjuncts used in placement: intubating stylet Endotracheal tube insertion site: oral Blade: Hilton Blade size: #3 Cormack-Lehane Classification: grade I - full view of glottis Placement verified by: chest auscultation and capnometry Measured from: teeth ETT to teeth (cm): 22 Final airway type: endotracheal airway Indications and Patient Condition Indications for airway management: anesthesia Sedation level: Yes Preoxygenated: yesSoft Tissue Damage: No Dentition Unchanged: Yes Patient position: sniffing MILS maintained throughout us Ruben Palmer MD ANESTHESIA ORDERABLES Final Re sult * ECG 12 lead - Procedural (No Charge) (03/06/2025 9:16 AM EST) Ventricular Rate ECG 75 BPM GEMUSE Atrial Rate 75 BPM GEMUSE P-R Interval 146 ms GEMUSE QRS Duration 84 ms GEMUSE Q-T Interval 384 ms GEMUSE QTc 428 ms GEMUSE P Wave Hinkle 33 degrees GEMUSE R Hinkle -3 degrees GEMUSE T Hinkle 8 degrees GEMUSE ECG Interpretation Normal sinus rhythm Normal ECG When compared with ECG of 22-AUG-2022 18:45, Nonspecific T wave abnormality no longer evident in Lateral leads Confirmed by Maricel WHITE YUFENG ([id number]) on 03/06/2025 4:40:13 PM GEMUSE 03/06/2025 9:16 AM EST 03/06/2025 4:40 PM EST Opal Davey MD ECG ORDERABLES Final Result GEMUSE * Polysomnography with PAP (02/14/2025 9:30 AM EDT) Historical Provider [facility] ORDERABLES F inal Result * CT Lung Screening (12/10/2024 10:50 AM EDT) Anatomical Region Laterality Modality Chest Computed Tomogra phy 12/16/2024 2:09 PM EDT Impressions 12/16/2024 2:18 PM EDT No suspicious mass or nodule. Previous granulomatous disease. LUNG RADS: Lung-RADS 2: BENIGN S Modifier (Significant or Potentially Significant Findings): None present No suspicious nonpulmonary findings. RECOMMENDATIONS: 12 month screening low dose CT -------- FINAL REPORT -------- Dictated By: Dino Goff Dictated Date: 12/16/2024 14:09 ET Assigned Physician: Dino Goff Reviewed and Electronically Signed By: Dino Goff Signed Date: 12/16/2024 14:18 ET Workstation ID: [id number] Transcribed By: Self Edit Transcribed Date: 12/16/2024 14:09 ET Narrative 12/16/2024 2:18 PM EDT EXAMINATION: CT CHEST WITHOUT CONTRAST LUNG CANCER SCREENING, LOW DOSE CLINICAL INFORMATION: Lung cancer screening. Former smoker. COMPARISON: None TECHNIQUE: Multidetector CT. Examination of the chest. Examination of the chest without IV contrast. Reformatting in the coronal and sagittal planes. Device: Revolution [place] DLP: 181 mGy-cm CTDI: 4.89 Dose optimization was performed including the use of low-dose iterative reconstruction technique with automatic exposure control based on patient size. Type of contrast: None Volume of IV contrast: None Volume of contrast discarded: 0 mL FINDINGS: LUNG: No abnormality of the trachea or mainstem bronchi. LUNG NODULES: There are no suspicious nodules or masses. There are 2 micronodules one of which is calcified and measures less than 0.3 cm. OTHER PULMONARY: There is mild centrilobular emphysema. There is a linear opacity in the inferior lingula laterally. MEDIASTINUM: There are no enlarged mediastinal or hilar lymph nodes. No suspicious abnormalities of the esophagus. CARDIAC: The heart is not enlarged. No pericardial fluid or thickening No coronary calcifications demonstrated. VASCULAR: There is no thoracic aortic aneurysm. The main pulmonary artery is normal caliber PLEURA: There is no pleural fluid or pneumothorax AXILLA/CHEST WALL: There are no enlarged axillary lymph nodes. No chest wall mass demonstrated. VISUALIZED UPPER ABDOMEN: No suspicious abnormality on limited assessment of the visualized upper abdomen. There appears to be a gap in the data set in the axial plane below the level of the lung bases. There is a surgical clip in the fat of the epigastric region. MUSCULOSKELETAL: No suspicious focal bony lesion demonstrated. Procedure Note Dino Goff MD - 12/16/2024 EXAMINATION: CT CHEST WITHOUT CONTRAST LUNG CANCER SCREENING, LOW DOSE CLINICAL INFORMATION: Lung cancer screening. Former smoker. COMPARISON: None TECHNIQUE: Multidetector CT. Examination of the chest. Examination of the chest without IV contrast. Reformatting in the coronal and sagittal planes. Device: [employer] [place] DLP: 181 mGy-cm CTDI: 4.89 Dose optimization was performed including the use of low-dose iterativereconstruction technique with automatic exposure control based on patientsize. Type of contrast: None Volume of IV contrast: None Volume of contrast discarded: 0 mL FINDINGS: LUNG: No abnormality of the trachea or mainstem bronchi. LUNG NODULES: There are no suspicious nodules or masses. There are 2 micronodules one of which is calcified and measures less than0.3 cm. OTHER PULMONARY: There is mild centrilobular emphysema. There is a linearopacity in the inferior lingula laterally. MEDIASTINUM: There are no enlarged mediastinal or hilar lymph nodes. Nosuspicious abnormalities of the esophagus. CARDIAC: The heart is not enlarged. No pericardial fluid or thickening No coronary calcifications demonstrated. VASCULAR: There is no thoracic aortic aneurysm. The main pulmonary arteryis normal caliber PLEURA: There is no pleural fluid or pneumothorax AXILLA/CHEST WALL: There are no enlarged axillary lymph nodes. No chestwall mass demonstrated. VISUALIZED UPPER ABDOMEN: No suspicious abnormality on limited assessmentof the visualized upper abdomen. There appears to be a gap in the data setin the axial plane below the level of the lung bases. There is a surgicalclip in the fat of the epigastric region. MUSCULOSKELETAL: No suspicious focal bony lesion demonstrated. IMPRESSION: No suspicious mass or nodule. Previous granulomatous disease. LUNG RADS: Lung-RADS 2: BENIGN S Modifier (Significant or Potentially Significant Findings): Nonepresent No suspicious nonpulmonary findings. RECOMMENDATIONS: 12 month screening low dose [address] -------- FINAL REPORT -------- Dictated By: Dino Goff Dictated Date: 12/16/2024 14:09 ET Assigned Physician: Dino Goff Reviewed and Electronically Signed By: Dino Goff Signed Date: 12/16/2024 14:18 ET Workstation ID: [id number] Transcribed By: Self Edit Transcribed Date: 12/16/2024 14:09 ET Roney Martins MD [facility] [place] CT PROCEDURES Final Result * (ABNORMAL) Lipid panel with reflex to direct LDL (11/05/2024 9:28 AM EDT) Cholesterol 189 0 - 200 mg/dL LAB CHEMISTRY METHOD 11/05/2024 2:39 PM EDT [facility] Triglycerides 227(H) 0 - 150 mg/dL LAB CHEMISTRY METHOD 11/05/2024 2:39 PM EDT [facility] HDL 44 >=40 mg/dL LAB CHEMISTRY METHOD 11/05/2024 2:39 PM EDT [facility] LDL Calculated 100 0 - 100 mg/dL LAB CHEMISTRY METHOD 11/05/2024 2:39 PM EDT [facility] VLDL Cholesterol Fernando 45.4 mg/dL LAB CHEMISTRY METHOD 11/05/2024 2:39 PM EDT [facility] Non HDL Chol. (LDL+VLDL) 145(H) <145 mg/dL LAB CHEMISTRY METHOD 11/05/2024 2:39 PM EDT [facility] Chol/HDL Ratio 4.3 0.0 - 4.4 LAB CHEMISTRY METHOD 11/05/2024 2:39 PM T [facility] Blood Venous blood specimen / Unknown Venipuncture / Unknown 11/05/2024 9:28 AM EDT 11/05/2024 9:28 AM EDT Chema DIAZ LAB BLOOD ORDERABLES Fi nal Result [facility] [address] [place] [address], * Basic metabolic panel (11/05/2024 9:28 AM EDT) Sodium 139 133 - 145 mmol/L LAB CHEMISTRY METHOD 11/05/2024 2:53 PM [facility] Potassium 4.6 3.5 - 5.5 mmol/L LAB CHEMISTRY METHOD 11/05/2024 2:53 PM [facility] Chloride 106 96 - 110 mmol/L LAB CHEMISTRY METHOD 11/05/2024 2:53 PM [facility] CO2 23 21 - 32 mmol/L LAB CHEMISTRY METHOD 11/05/2024 2:53 PM [facility] Anion Gap 10 3 - 11 LAB CHEMISTRY METHOD 11/05/2024 2:53 PM [facility] Glucose 99 70 - 100 mg/dL LAB CHEMISTRY METHOD 11/05/2024 2:53 PM [facility] BUN 14 5 - 25 mg/dL LAB CHEMISTRY METHOD 11/05/2024 2:53 PM [facility] Creatinine 1.15 0.70 - 1.30 mg/dL LAB CHEMISTRY METHOD 11/05/2024 2:53 PM EDT [facility] eGFR 75 >=60 mL/min/1. 73m2 LAB CHEMISTRY METHOD 11/05/2024 2:53 PM EDT [facility] Comment:Calculation based on the Chronic Kidney Disease Epidemiology Collaboration (CKD-EPI) equation refit without adjustment for race. BUN/Creatinine Ratio 12.2 LAB CHEMISTRY METHOD 11/05/2024 2:53 PM EDT [facility] Calcium 9.4 8.5 - 10.5 mg/dL LAB CHEMISTRY METHOD 11/05/2024 2:53 PM EDT [facility] Blood Venous blood specimen / Unknown Venipuncture / Unknown 11/05/2024 9:28 AM EDT 11/05/2024 9:28 AM EDT Chema DIAZ LAB BLOOD ORDERABLES Fi nal Result [facility] [address] [place] [address], * Hepatitis C Screening (07/30/2021) [facility] Hepatitis C Screening Abstracted Historical Provider HEALTH MAINTENANCE Final Result * Colonoscopy (06/12/2020) Pathologist [facility] Colonoscopy No Interpretation , Abstracted Anatomical Region Laterality Modality Other Historical Provider HEALTH MAINTENANCE Final Result from Last 3 Months or Most Recently Relevant to Health Maintenance Additional Health Concerns Active Problems Noted Date Diagnosed Date Autogenerated Problem 03/07/2025 Insurance [facility] Advance Directives * Full Code - Default (Latest Code Status on File) Date Activated Date Inactivated Comments 03/06/2025 2:19 PM 03/07/2025 1:59 PM This is or jet is used when code status has not been discussed with the patient, or code status is otherwise unknown/unconfirmed To update the patient's code status, place a code status order. Do not modify or discontinue any currently active code status orders. * Full Code - Default Date Activated Date Inactivated Comments 03/06/2025 8:59 AM 03/06/2025 2:19 PM This is or jet is used when code status has not been discussed with the patient, or code status is otherwise unknown/unconfirmed To update the patient's code status, place a code status order. Do not modify or discontinue any currently active code status orders. Care Teams [employer] Relationship Specialty Start Date End Date John Zhu MD [address] [place] [id number] PCP - General Internal Medicine 02/25/24
== END 2025-04-04 13:38 | disposition home or self-care (01) ==
LOC: HO.NEURO 13:37
PROVIDERS: PCP Internal Medicine
DX: G56.03 Carpal tunnel syndrome, bilateral upper limbs (principal); G56.23 Lesion of ulnar nerve, bilateral upper limbs; R20.0 Anesthesia of skin
CPT/HCPCS: 95886; 95911

== ENCOUNTER → 2025-04-04 13:42 | Outpatient (BNV) | payer OTHER, SELFPAY | PROVIDERS: PCP Internal Medicine; Visit Provider Physical Medicine & Rehabilitation | DX: G56.01 Carpal tunnel syndrome, right upper limb (principal); R20.2 Paresthesia of skin | CPT/HCPCS: 95886; 95911 ==